=== PATIENT | male | born 1970 | race Caucasian/White ===

== ENCOUNTER 2022-11-21 10:04 | Day surgery (SDC) | payer BC ==
[~2022-11-21 10:04] MED LIST: Lactated Ringers 1,000 ML IV SCH
[2022-11-21] MEDS ORDERED: fentaNYL 100 MCG/2 ML SDV ONE (12:02)
[2022-11-21] MEDS ORDERED: Lidocaine 2% 5 ML SDV ONE (12:02)
[2022-11-21] MEDS ORDERED: Propofol 200 MG/20 ML SDV ONE (12:02)
[2022-11-21] MEDS ORDERED: Lactated Ringers 1,000 ML IV SCH (13:00)
== END 2022-11-21 13:45 | disposition home or self-care (01) ==
LOC: MW.SDS 10:04
PROVIDERS: ATTEND Surgery
DX: Z12.11 Encounter for screening for malignant neoplasm of colon (principal); R74.8 Abnormal levels of other serum enzymes; F10.90 Alcohol use, unspecified, uncomplicated; Z80.0 Family history of malignant neoplasm of digestive organs; Z91.012 Allergy to eggs; Z91.011 Allergy to milk products
CPT/HCPCS: 45378; J2704; J3010; J7120; J3490